=== PATIENT | female | born 1945 | race Caucasian/White ===

== ENCOUNTER → 2018-03-08 12:27 | Outpatient (CLI) | payer MEDICARE, SELFPAY ==
--- NOTE | 2018-03-08 | DI.MRI.S_ITS ---
PROCEDURE: MR FOOT RT WO/W CON INDICATIONS: SWELLING OF 2nd TOE OF RIGHT FOOT TECHNIQUE: Noncontrast sagittal T1 spin echo and T2 fast spin echo with fat saturation, long-axis T1 spin echo and T2 fast spin echo with fat saturation; short-axis T1 spin echo, proton density fast spin echo, and T2 fast spin echo with fat saturation through the forefoot. Post-contrast short axis, long axis, and sagittal T1 spin echo with fat saturation through the forefoot. COMPARISON: [facility] [place], CR, XR TOE(S) RIGHT, 02/22/2018, 15:12. FINDINGS: Image quality: Diagnostic. Bones and joints: There is no acute fracture, dislocation, or suspicious osseous lesion. However, there is prominent marrow edema with corresponding enhancement evident involving the middle and distal phalanges of the 2nd toe. There is mild edema and subtle enhancement involving the proximal phalanx of the 2nd toe, as well. There is subtle edema and subtle enhancement of the proximal and middle phalanges of the 3rd toe. There are additional areas of marrow edema identified involving the tarsometatarsal joints, which is slightly more prominent along the lateral tarsometatarsal joints. Additionally, there is moderate focal marrow edema involving the proximal aspect of the 4th metatarsal with corresponding enhancement on the postcontrast images. Moderate degenerative changes are noted involving the 1st metatarsophalangeal joint without significant hallux valgus deformity. There also are scattered areas of mild degenerative change involving the remainder of the forefoot joints. No significant joint effusions are appreciated. Soft tissues: There is prominent soft tissue edema identified involving the 2nd toe. No drainable or loculated fluid collections are appreciated. There is mild soft tissue edema identified involving the adjacent 1st and 3rd toes, as well. There may be minimal fluid and enhancement involving the 2nd toe extensor tendon, suspicious for possible tenosynovitis. Otherwise, the remainder of the flexor and extensor tendons of the midfoot and forefoot appear intact and within normal limits. No large ganglion cysts are evident. No soft tissue masses are identified. No significant atrophy involving the intrinsic muscles of the forefoot are present. The Lisfranc ligament appears to be intact. IMPRESSION: 1. Prominent marrow edema involving the middle and distal phalanges of the 2nd toe is highly suspicious for osteomyelitis. There may also be involvement of the proximal phalanx. However, if osteomyelitis is not of clinical concern, posttraumatic changes may result in this appearance, as well. 2. Subtle edema and enhancement involving the proximal and middle phalanges of the 3rd toe may be related to osteomyelitis, as well. Please correlate clinically. 3. Soft tissue edema involving the 1st through 3rd toes is more prominent involving the 2nd toe and highly suggestive of a cellulitis. No drainable abscess is evident. 4. Mild tenosynovitis involving the extensor tendon of the 2nd toe. 5. Prominent degenerative changes involving the lateral tarsometatarsal joints is more prominent at the 3rd and 4th tarsometatarsal joints. Edema involving the bone at this location is likely degenerative. However, the possibility of superimposed osteomyelitis cannot be excluded. Note: A message regarding these findings was left on Dr. Aquino's personal cellular telephone at 1750 hours (PST) on 03/08/18. Dictated by: Sg Ozuna M.D. on 03/08/2018 at 16:43 Approved by: Sg Ozuna M.D. on 03/08/2018 at 16:58
== END ==
PROVIDERS: Visit Provider Podiatrist
DX: M19.071 Primary osteoarthritis, right ankle and foot (principal); M79.89 Other specified soft tissue disorders; M65.871 Other synovitis and tenosynovitis, right ankle and foot; R93.7 Abnormal findings on diagnostic imaging of other parts of musculoskeletal system
CPT/HCPCS: 73720; A9579

== ENCOUNTER → 2020-07-18 14:35 | Outpatient (ROUT) | payer MEDICARE, SELFPAY ==
[2020-07-18 15:05] LABS: Alanine Aminotransferase 22 IU/L (<35); Albumin 4.3 g/dL (3.5-5.0); Albumin Globulin Ratio 1.5 (1.0-2.8); Alkaline Phosphatase 81 U/L (38-126); Aspartate Aminotransferase 26 IU/L (14-36); BUN Creatinine Ratio 29.5 (6-22); Bilirubin Total 0.5 mg/dL (0.2-1.3); Blood Urea Nitrogen 18 mg/dL (7-17); Calcium 9.7 mg/dL (8.4-10.2); Carbon Dioxide 27 mmol/L (22-32); Chloride 107 mmol/L (98-107); Cholesterol 251 mg/dL (140-199); Estimated Glomerular Filt Rate > 60.0 mL/min (>60); Globulin 2.8 g/dL (1.7-4.1); Glucose 124 mg/dL (80-110); HDL Cholesterol 45 mg/dL (40-60); HEMOLYSIS < 15 (0-50); LDL Cholesterol Calculated 152 mg/dL (<100); Potassium 4.3 mmol/L (3.4-5.1); Sodium 139 mmol/L (137-145); Total Protein 7.1 g/dL (6.3-8.2); Triglycerides 269 mg/dL (35-150)
== END ==
PROVIDERS: Visit Provider Internal Medicine
DX: E78.5 Hyperlipidemia, unspecified (principal); M19.91 Primary osteoarthritis, unspecified site
CPT/HCPCS: 80053; 80061

== ENCOUNTER → 2020-11-13 08:44 | Outpatient (CLI) | payer MEDICARE, SELFPAY ==
[2020-11-13] MEDS: COVID-19 VACC #1, MRNA(MOD) 100 MCG/0.5 ML VIAL IM (08:50)
== END ==
PROVIDERS: Visit Provider Internal Medicine
DX: Z23 Encounter for immunization (principal)
CPT/HCPCS: 0011A; 91301

== ENCOUNTER → 2020-12-11 10:55 | Outpatient (CLI) | payer MEDICARE, SELFPAY ==
[2020-12-11] MEDS: COVID-19 VACC #2, MRNA(MOD) 100 MCG/0.5 ML VIAL IM (11:06)
== END ==
PROVIDERS: Visit Provider Internal Medicine
DX: Z23 Encounter for immunization (principal)
CPT/HCPCS: 0012A; 91301

== ENCOUNTER → 2024-04-06 13:37 | Outpatient (CLI) | payer MEDICARE, SELFPAY ==
--- NOTE | 2024-05-30 08:00 | DIAB.MNT ---
Initial Diabetes Medical Nutrition Therapy Assessment Name: Nette Ramirez Date: 04/06/24 Time: 2-3p Dx: Type II Diabetes Provider: Alireza Melo Learning Style: Shaylee Perdue presents for initial DM visit. No previous DM education or MNT. Unsure of FH of DM due to being adopted. States this is a new dx for her. States she told her provider she knows nothing about DM and needs to know more about Dm before taking DM medications. Not taking rx'd Metformin at this time. Endorses elevated cholesterol. Waking 1x per night to urinate. Due for eye exam. Due for dental exam. Endorses feeling as though DM is very overwhelming. Diet Recall: 6a: tea with HB egg, toast ww 2p: cheese with wheat thin crackers 5p: chx with veggie tabouli salad 6p: chocolate bar or creamsicle water 3-4 x 12oz tea 1c Anthropometrics: Ht: 62 Wt: 176# reported Weight history: Physical Activity: No program currently. Movement 3x per week with volunteering in the kitchen at the [facility]. Self-Monitoring Blood Glucose: None Diabetes Medications: 1000mg Metformin XR BID (not taking) Pertinent Labs: HGA1c: 9.8% 10/2023 10.1% 02/2024 Past Medical History (per referral): HLD, elevated hgA1c, elevated TSH, vit B12 def Nutrition Rx: Carbohydrates: Meal: 30-45g Snack: 15-30g Nutrition Diagnosis: - Nutrition and food related knowledge deficit r/t new dm dx without previous MNT or DM ed aeb pt report - Excessive CHO intake r/t nutrition knowledge deficit aeb diet recall Intervention: This participant was very receptive. Provided appropriate educational handouts. Discussed the following topics: Completed intake assessment. Discussed barriers to care. Pathophysiology of T2DM HgA1c, its correlation to blood glucose numbers, and rationale for goal Potential of self-monitoring, how often, and when to check. Suggested checking at different times to evaluate meals Plate Method, impact of macronutrients on blood sugar, meal timing, carbohydrate counting, pairing macronutrients and spreading out carbohydrates for better blood glucose management Recommended servings for carbohydrates at meals and snacks Heart health nutrition Brainstormed appropriate meal/snack ideas on food preferences Role of physical activity and following provider guidelines for safety Medication management: role/action of Metformin, recs on Metformin, SE and how to reduce Created SMART goals for patient self-care and success. Goals: Take Metfromin 500mg x1 week, then increase to 1500-1000mg 2nd week Check Austyn bar label Try to move chocolate away from dinner meal Follow-up: SERVANDO MERINO follow-up in 2-3 weeks. Will attend DSME classes and 1:1 f/u Meeta Rhoades RDN, [facility] Certified Diabetes Care and Induction Heat Treater P: [phone] Thank you for this referral
== END ==
PROVIDERS: PCP Internal Medicine; Referring Provider Internal Medicine
DX: E11.9 Type 2 diabetes mellitus without complications (principal); Z71.3 Dietary counseling and surveillance
CPT/HCPCS: 97802

== ENCOUNTER → 2024-05-02 09:24 | Outpatient (CLI) | payer MEDICARE, SELFPAY ==
--- NOTE | 2024-05-05 14:57 | DIAB.FU ---
Diabetes Education Class Series: Diabetes and Nutrition Name: Nette Ramirez Date: 05/02/24 Time: [id number] Nette presents for 1 of 3 DSME classes. Reports she has been making diet changes and gave up coffee recently due to needing sweetener to enjoy it. Now enjoys tea. Class topics covered: Debunk nutrition myths and discuss how to sustain healthy eating long-term through moderation and variety Define macronutrients and determine their impact on blood sugars Discuss macronutrient pairing, Plate Method, and carb counting Review general recommendations for carbohydrates Practice label reading Discuss the role of fiber in diabetes and provide examples of sources Review heart health nutrition: fats, fiber, and sodium Determine recommendations for grocery shopping and eating out Discuss alcohol recommendations Review the role of substitute sugars in diabetes management Set SMART goals Goal Set: Start label reading at grocery store Follow-up: Diabetes Physiology and Medication Class in one week Meeta Rhoades RDN, [facility] Certified Diabetes Care and Framing Mechanic P: [phone] Thank you for this referral
== END ==
LOC: DIET 09:24
PROVIDERS: PCP Internal Medicine; Referring Provider Internal Medicine
DX: E11.9 Type 2 diabetes mellitus without complications (principal); Z71.3 Dietary counseling and surveillance
CPT/HCPCS: G0109

== ENCOUNTER → 2024-05-09 09:22 | Outpatient (CLI) | payer MEDICARE, SELFPAY ==
--- NOTE | 2024-06-01 11:22 | DIAB.FU ---
Diabetes Education Class Series: Diabetes Physiology and Medications Name: Nette Ramirez Date: 05/09/24 Time: [id number] Dx: Type II Diabetes Reports she has started label reading at [employer], meeting goal from last visit. Class topics covered: ? Diabetes pathophysiology ? Discuss different types of diabetes ? Review criteria for diagnosing diabetes ? Review HgA1c measurement and associated blood sugars ? Review blood sugar monitoring safety, technique, and goals ? Discuss ways to reduce complications associated with diabetes, includes microvascular and macrovascular complications ? Review diabetes medications types, action, and side effects ? Health care visits recommended for people with T2DM ? Immunization recommended for people with T2DM ? SMART goals review Follow-up: Diabetes Lifestyle and Ongoing Support Class next week Meeta Rhoades RDN, [facility] Certified Diabetes Care and Package Crimper P: [phone] Thank you for this referral
== END ==
PROVIDERS: PCP Internal Medicine; Referring Provider Internal Medicine
DX: E11.9 Type 2 diabetes mellitus without complications (principal); Z71.3 Dietary counseling and surveillance
CPT/HCPCS: G0109

== ENCOUNTER → 2024-05-16 09:24 | Outpatient (CLI) | payer MEDICARE, SELFPAY ==
--- NOTE | 2024-06-01 11:29 | DIAB.FU ---
Diabetes Education Class Series: Diabetes Lifestyle Change and Ongoing Support Name: Nette Ramirez Date: 05/16/24 Time: 930-11a Dx: Type II Diabetes Nette reports portions and recipes are going well. States she needs more work on increasing exercise. Class topics covered: ? Discuss the difference between physical activity and exercise ? Determine physical activity benefits and impact on diabetes ? Review physical activity recommendations and safety ? Discuss emergency preparedness ? Discuss diabetes and emotions (diabetes burnout/distress) ? Review and practice stress management techniques ? Review support groups and community resources ? Discuss the role of family support in diabetes care ? What is going well? Challenges of diabetes? Follow-up: 1:1 visit follow-up Meeta Rhoades RDN, [facility] Certified Diabetes Care and Carbon Paper Coating Supervisor P: [phone] Thank you for this referral
== END ==
PROVIDERS: PCP Internal Medicine; Referring Provider Internal Medicine
DX: E11.9 Type 2 diabetes mellitus without complications (principal); Z71.3 Dietary counseling and surveillance
CPT/HCPCS: G0109

== ENCOUNTER → 2024-06-14 14:44 | Outpatient (CLI) | payer MEDICARE, SELFPAY ==
--- NOTE | 2024-06-29 09:18 | DIAB.MNTFU ---
Follow-up Diabetes Medical Nutrition Therapy Assessment Name: Nette Ramirez Date: 06/14/24 Time: 3-340p Dx: Type II Diabetes Nette presents for follow-up DM visit. Completed Dm class series. Has previously been reluctant to start DM medications, but has started Metformin since our last visit as rx'd without SE. Feeling as though Dm is more manageable now. Has PCP appt in Jun. Has dental visit scheduled, has not gone for years. Does not get flu shot due to h/o rxn. UTD on covid vaccine. Ordered divided plates to help with portions. Cooking more veggies. Choosing higher fiber foods. Cut out coffee/sugar. States she has sometimes cheated with nuts, but we discussed health benefits and low CHO nutrition of nuts. States she sometimes misses eating potatoes. Diet Recall: 6a: tea with HB egg, toast ww 2p: 1/2 apple, cheese, hummus 5p: chx or fish with veggie, sometimes no CHO or half potato 630p: noting or fudgesicle water tea Anthropometrics: Ht: 62 Wt: 176# reported last visit Physical Activity: [facility] but not what she was looking for. Would be interested in a different class option. Self-Monitoring Blood Glucose: None Diabetes Medications: 1000mg Metformin XR BID Pertinent Labs: HGA1c: 9.8% 10/2023 10.1% 02/2024 Past Medical History (per referral): HLD, elevated hgA1c, elevated TSH, vit B12 def Nutrition Rx: Carbohydrates: Meal: 30-45g Snack: 15-30g Nutrition Diagnosis: - Nutrition and food related knowledge deficit r/t new dm dx without previous MNT or DM ed aeb pt report- improved - Excessive CHO intake r/t nutrition knowledge deficit aeb diet recall- improved Intervention: This participant was very receptive. Provided appropriate educational handouts. Discussed the following topics: Review of CHO recs Nut nutrition and health benefits Reducing Dm complication risks Physical activity recommendations and options at [facility] Created SMART goals for patient self-care and success. Goals: Take Metformin 500mg x1 week, then increase to 1500-1000mg 2nd week- met Check Austyn bar label- d/c Try to move chocolate away from dinner meal- d/c Can add potato in portion at meals- new [facility] Add nuts into diet- new Follow-up: SERVANDO MERINO follow-up prn. Encouraged her to call or message with questions or follow-up needs. She agreed. Meeta Rhoades RDN, [facility] Certified Diabetes Care and Electric Switch Tester P: [phone] Thank you for this referral
== END ==
LOC: DIET 14:44
PROVIDERS: PCP Internal Medicine; Referring Provider Internal Medicine
DX: E11.9 Type 2 diabetes mellitus without complications (principal); Z71.3 Dietary counseling and surveillance
CPT/HCPCS: 97803

== ENCOUNTER → 2025-02-21 11:40 | Outpatient (CLI) | payer MEDICARE, SELFPAY ==
--- NOTE | 2025-02-21 11:41 | DI.RAD.S_ITS ---
PROCEDURE: XR KNEE LT 3V INDICATIONS: r/o OA TECHNIQUE: 3 views of the knee were acquired. COMPARISON: None. FINDINGS: Bones: No fractures or dislocations. No suspicious bony lesions. Tricompartmental joint space narrowing with associated osteophytosis. Subchondral cystic change and early bony deformity of the medial tibiofemoral compartment. Soft tissues: Small joint effusion. No suspicious soft tissue calcifications. IMPRESSION: Moderate to severe tricompartmental osteoarthritis. Kellgren-John Grade 2-3. Dictated by: Brain Simmons M.D. on 02/21/2025 at 13:42 Approved by: Brain Simmons M.D. on 02/21/2025 at 13:51
== END ==
LOC: RAD 11:41
PROVIDERS: PCP Internal Medicine; Referring Provider Chiropractor; Visit Provider Chiropractor
DX: S83.92XA Sprain of unspecified site of left knee, initial encounter (principal); M17.12 Unilateral primary osteoarthritis, left knee; X58.XXXA Exposure to other specified factors, initial encounter
CPT/HCPCS: 73562